=== PATIENT | female | born 1940 | race Caucasian/White ===

== ENCOUNTER 2018-11-05 09:24 | Emergency (ER) | payer OTHER ==
[2018-11-05 09:42] VITALS: BMI 29.6
--- NOTE | 2018-11-05 10:06 | PDOC ---
History of Present Illness - General Chief Complaint: Shortness of Breath Stated Complaint: SOB Time Seen by Provider: 11/05/18 10:06 History Source: Patient Exam Limitations: No Limitations - History of Present Illness Initial Comments: 78 yo F w a hx of HTN presents to the ER after she woke up this morning short of breath. She states that she was last well last night when she went to sleep and then this morning when she awoke she was gasping for air and had a hard time breathing. This has never happened before. She did not have chest pain at any time during this episode. She denies having a hard time lying down flat and denies being short of breath after exertion. She was not sweating during the episode this morning. She denies having a history of asthma. She denies having chest pain. Denies nausea, vomiting, fevers, chills, infections, back pain, abdominal pain, leg pain, leg swelling, arm swelling, dysuria, frequency, urgency. Meds: 1. Losartan 50 mg 2. Cardura 4 mg 3. metoprolol 100 mg 4. amlodipine 10 mg 5. torsemide 10 mg 6. Enablex 15 mg PCP: Dr. Nowak in [place] Allergies: Keflex, Amoxicillin, CT dye Social Hx: Drinks 1 cup of wine with dinner. Denies smoking, or illicit drug usage. Past History - Past Medical History Allergies/Adverse Reactions: Allergies Allergy/AdvReac Type Severity Reaction Status Date / Time amoxicillin AdvReac Intermediate Rash Verified 11/05/18 10:37 cephalexin [From Keflex] AdvReac Intermediate Rash Verified 11/05/18 10:37 IV CONTRAST Allergy Severe Swelling Uncoded 11/05/18 10:38 Home Medications: Ambulatory Orders Amlodipine Besylate 10 mg PO DAILY 11/05/18 Darifenacin Hydrobromide [Enablex] 15 mg PO DAILY 11/05/18 Doxazosin Mesylate [Cardura] 4 mg PO DAILY 11/05/18 Losartan Potassium 50 mg PO DAILY 11/05/18 Metoprolol Succinate 100 mg PO DAILY 11/05/18 Torsemide [Demadex] 10 mg PO DAILY 11/05/18 COPD: No GI Disorders: Yes (Diverticulitis) HTN: Yes - Surgical History Abdominal Surgery: Yes (colonectomy) - Immunization History Immunization Up to Date: Yes - Suicide/Smoking/Psychosocial Hx Smoking History: Never smoked Hx Alcohol Use: No Drug/Substance Use Hx: No Review of Systems - Review of Systems Constitutional: No: Chills, Diaphoresis, Fever, Malaise, Weakness HEENTM: No: Blurred Vision, Nose Congestion, Difficulty Swallowing Respiratory: Yes: Symptoms reported, Cough, Shortness of Breath. No: Orthopnea , SOB with Exertion, SOB at Rest, Stridor, Wheezing, Productive cough Cardiac (ROS): No: Chest Pain, Edema, Lightheadedness, Palpitations, Syncope ABD/GI: No: Constipated, Diarrhea, Nausea, Poor Fluid Intake, Rectal Bleeding, Vomiting : No: Burning, Dysuria, Frequency, Hematuria Musculoskeletal: No: Back Pain, Muscle Pain, Neck Pain Integumentary: No: Bruising, Change in Color, Dryness, Rash Neurological: No: Headache, Numbness, Tingling, Dizziness Psychiatric: No: Anxiety, Depression, Sleep Pattern Change Endocrine: No: Excessive Sweating, Flushing, Intolerance to Cold, Intolerance to Heat Hematologic/Lymphatic: No: Anemia, Easy Bleeding *Physical Exam - Vital Signs Last Vital Signs Temp Pulse Resp BP Pulse Ox 9823 F H 65 20 145/59 L 97 11/05/18 09:38 11/05/18 09:38 11/05/18 09:38 11/05/18 09:38 11/05/18 09:38 - Physical Exam General Appearance: Yes: Nourished, Appropriately Dressed. No: Apparent Distress HEENT: positive: EOMI, JANNETH, Normal ENT Inspection, Normal Voice, Pharynx Normal. negative: Pharyngeal Erythema, Nasal Congestion, Rhinorrhea Neck: positive: Trachea midline, Supple. negative: Carotid bruit, Decreased range of motion, Lymphadenopathy (R), Lymphadenopathy (L) Respiratory/Chest: positive: Lungs Clear, Normal Breath Sounds. negative: Chest Tender, Respiratory Distress, Accessory Muscle Use, Rapid RR, Decreased Breath Sounds, Crackles, Rales, Rhonchi, Stridor, Wheezing Cardiovascular: positive: Regular Rhythm, Regular Rate, S1, S2, Edema (1+ ) Vascular Pulses: Dorsalis-Pedis (R): 2+, Doralis-Pedis (L): 2+ Gastrointestinal/Abdominal: positive: Normal Bowel Sounds, Soft. negative: Distended, Guarding, Rebound Rectal Exam: positive: deferred Lymphatic: negative: Adenopathy Musculoskeletal: positive: Normal Inspection. negative: CVA Tenderness Extremity: positive: Normal Capillary Refill, Normal Inspection, Normal Range of Motion Integumentary: positive: Normal Color, Dry, Warm Neurologic: positive: station usher II-XII NML intact, Fully Oriented, Alert, Normal Mood/ Affect, Normal Response Moderate Sedation - Procedure Monitoring Vital Signs: Procedure Monitoring Vital Signs Temperature 9823 F H 11/05/18 09:38 Pulse Rate 65 11/05/18 09:38 Respiratory Rate 20 11/05/18 09:38 Blood Pressure 145/59 L 11/05/18 09:38 O2 Sat by Pulse Oximetry (%) 97 11/05/18 09:38 ED Treatment Course - LABORATORY CBC & Chemistry Diagram: 11/05/18 10:27 11/05/18 10:27 Medical Decision Making - Medical Decision Making 78 yo F w a hx of HTN presents to the ER after she woke up this morning short of breath. She states that she was last well last night when she went to sleep and then this morning when she awoke she was gasping for air and had a hard time breathing. DDx IBNLT: PNA, URI, Asthma, COPD, ACS, heart failure, pneumothorax. Plan: Cbc, Cmp, Trop, BNP, EKG, CXR, re-assess. I placed a 20 gauge IV in the Left AC. Trop negative. 2nd trop negative EKG normal sinus CXR clean Patient feels better and we have found no abnormalities. Will DC w pcp FU *DC/Admit/Observation/Transfer Diagnosis at time of Disposition: Shortness of breath - Discharge Dispostion Disposition: HOME Condition at time of disposition: Improved Decision to Admit order: No - Referrals Referrals: [facility] [place] [facility] [place] [Provider Group] - Patient Instructions Printed Discharge Instructions: DI for Shortness of Breath Additional Instructions: You came into the ER with shortness of breath. It resolved here in the ER. We looked at your blood and urine and found no abnormalities. We did a chest x-ray and an electrocardiogram and found no abnormalities. Please come back to the ER if your shortness of breath worsens, you develop chest pain, nausea, vomiting, a fever or any other new or worsening concerns. Thank you for coming to the [facility] ER. We hope you feel better soon! Print Language: CZECH - Post Discharge Activity
[2018-11-05 10:35] LABS: BASO % 0.9 % (0-2.0); EOS % 2.6 % (0-4.5); HEMOGLOBIN 12.5 GM/dL (10.7-15.3); LYMPH % 13.6 % (8-40); MCH 32.4 pg (25.7-33.7); MCHC 34.8 g/dl (32.0-36.0); MEAN PLT VOLUME 8.1 fl (7.5-11.1); MONO % 6.9 % (3.8-10.2); PLATELET COUNT 213 K/MM3 (134-434); RBC 3.87 M/mm3 (3.60-5.2); RDW 13.9 % (11.6-15.6); WHITE BLOOD COUNT 9.1 K/mm3 (4.0-10.0)
--- NOTE | 2018-11-05 10:49 | PDOC ---
Attending Attestation - HPI HPI: 11/05/18 10:56 The patient is a 78 year old female, with a significant past medical history of HTN, and Diverticulitis, who presents to the emergency department with, shortness of breath. As per patient, she woke up this morning feeling as she was gasping for air. She denies any chest pain, palpitations, or diaphoresis. She denies recent fevers, chills, headache or dizziness. She denies recent nausea, vomit, diarrhea or constipation. She denies recent dysuria, frequency, urgency or hematuria. She denies recent chest pain. Allergies: Keflex, Amoxicillin, CT dye Past surgical history: colectomy. Social history: Social alcohol usage. Primary Care Physician: Dr. Nowak in [place] <Teto Luu - Last Filed: 11/05/18 11:49> - Resident Resident Name: Giancarlo Garcia - ED Attending Attestation I have performed the following: I have examined & evaluated the patient, The case was reviewed & discussed with the resident, I agree w/resident's findings & plan, Exceptions are as noted - Physicial Exam PE: 11/05/18 11:38 GENERAL: The patient is awake, alert, and fully oriented, Nontoxic - in no acute distress. HEAD: Normocephalic, atraumatic. EYES: extraocular movements intact, sclera anicteric, conjunctiva clear. ENT: Normal voice, Moist mucous membranes, no JVD NECK: Normal range of motion, supple LUNGS: Breath sounds equal, clear to auscultation bilaterally. No wheezes, no rhonchi, no rales. HEART: Regular rate and rhythm, normal S1 and S2 without murmur, rub or gallop. ABDOMEN: Soft, nontender, normoactive bowel sounds. No guarding, no rebound. . No CVA tenderness EXTREMITIES: Normal range of motion, bilateral edema, left greater than right ( baseline per pt) - no calf tenderness, negative Homans sign NEUROLOGICAL: No facial assymetry, Normal speech, PSYCH: Normal mood, normal affect. SKIN: Warm, Dry, normal turgor, - Medical Decision Making 11/05/18 10:49 78y F htn, woke up sob, sp partial colectomy for diverticulitis presents with sob. Per patient she was in her usual state of health until this morning when she woke up she felt mildly short of breath with exertion she denies associated chest pain, shortness of breath diaphoresis fevers chills cough, increased leg swelling calf pain denies any diarrhea, melena, BPR, orthpnea. On exam the patient is no acute distress with an exam as documented above. Differential for the patient's symptoms includes anemia, metabolic derangement, pneumonia, chf, acs Will obtain blood work, chest x-ray EKG will reassess 11/05/18 12:14 pts labs reviewed no signs of anemia, metqabolic derangement, trop/bno neg x 1 cxr neg will ambulate the pt and will repeat her trop at 2pm (onset of her sob was at 7am) if neg an dpt not dyspneci will dc with pmd fu 11/05/18 15:08 trop neg x 2 pt asymptomatic abmulating around the ER with out any sob/astorga will dc with pmd fu [place] return preautions were dsicussed <Murray De Souza - Last Filed: 11/05/18 15:08> Heart Score/ECG Review - ECG Impressions Comment:: 11/05/18 11:39 Twelve-lead EKG was performed and reviewed by me. There is normal sinus rhythm with a normal rate. The axis is normal. The intervals are normal. There is normal R wave progression There are no ST or T wave abnormalities. Impression: Normal twelve-lead EKG <Murray De Souza - Last Filed: 11/05/18 15:08> Attestations - Attestations 11/05/18 10:56 Documentation prepared by Teto Luu, acting as resident medical officer for Murray De Souza MD. <Teto Luu - Last Filed: 11/05/18 11:49>
[2018-11-05 11:03] LABS: ALBUMIN 3.8 g/dl (3.4-5.0); ALK PHOS 83 U/L (45-117); ANION GAP 5 MMOL/L (8-16); BILIRUBIN,TOTAL 0.3 mg/dL (0.2-1); BLOOD UREA NITROGEN 23 mg/dL (7-18); CALCIUM 9.2 mg/dL (8.5-10.1); CHLORIDE 106 mmol/L (98-107); CO2 28 mmol/L (21-32); CREATININE 1.3 mg/dL (0.55-1.3); GLUCOSE,RANDOM 111 mg/dL (74-106); N-TERMINAL BNP 235.6 pg/ml (5-450); POTASSIUM 4.2 mmol/L (3.5-5.1); SGOT/AST 18 U/L (15-37); SGPT/ALT 26 U/L (13-61); SODIUM 139 mmol/L (136-145); TOT PROT 7.5 g/dl (6.4-8.2)
[2018-11-05 11:51] VITALS: TEMP 98
[2018-11-05 12:03] LABS: VENOUS PC02 43.7 mmHg (38-52); VENOUS PH 7.41 (7.32-7.42); VENOUS PO2 28.5 mmHg (28-48)
[2018-11-05] MEDS ORDERED: SODIUM CHLORIDE 0.9% 500 ML INFUS.BAG IV ONE (12:38)
[2018-11-05 12:40] LABS: URINE APPEARANCE CLEAR; URINE BILIRUBIN NEGATIVE (<2.0 mg/dL); URINE COLOR COLORLESS; URINE GLUCOSE (UA) NEGATIVE (NEGATIVE); URINE KETONE NEGATIVE (NEGATIVE); URINE LEUK ESTERASE NEGATIVE (NEGATIVE); URINE NITRITE NEGATIVE (NEGATIVE); URINE PROTEIN NEGATIVE (NEGATIVE); URINE UROBILINOGEN NEGATIVE mg/dL (0.2-1.0)
[2018-11-05 15:22] VITALS: BP 124/62; PULSE 67
--- NOTE | 2018-11-05 16:57 | EKG ---
Test Reason : Blood Pressure : / mmHG Vent. Rate : 064 BPM Atrial Rate : 064 BPM P-R Int : 176 ms QRS Dur : 082 ms QT Int : 404 ms P-R-T Axes : 031 007 040 degrees QTc Int : 416 ms NORMAL SINUS RHYTHM NORMAL ECG NO PREVIOUS ECGS AVAILABLE Confirmed by JUSTIN ARREOLA MD ([id number]) on 11/05/2018 4:57:03 PM Referred By: Confirmed By:JUSTIN ARREOLA MD
== END 2018-11-05 15:22 | disposition home or self-care (01) ==
LOC: JER 09:24
DX: R06.02 Shortness of breath (principal); I10 Essential (primary) hypertension; Z90.49 Acquired absence of other specified parts of digestive tract; Z88.1 Allergy status to other antibiotic agents; Z91.041 Radiographic dye allergy status
CPT/HCPCS: 36415; 71046-TC-FY; 80053; 81003; 82803; 83880; 84484; 85025; 93005; 93010; 99284-25